=== PATIENT | female | born 1975 | race American Indian/Alaskan Native ===

== ENCOUNTER 2017-07-13 15:57 | Emergency (ER) | payer BC ==
[2017-07-13 16:06] VITALS: BP 130/51
[2017-07-13 16:25] LABS: Basophils % (Auto) 0.5 % (0.0-1.8); Eosinophils % (Auto) 1.8 % (0.0-4.3); Hematocrit 40.2 % (30.3-42.9); Hemoglobin 13.1 gm/dl (10.1-14.3); Mean Corpuscular HGB Conc 33 % (30-34); Mean Corpuscular Hemoglobin 25 pg (28-32); Mean Corpuscular Volume 77 fl (79-97); Platelet Count 266 K/mm3 (140-440); Red Blood Count 5.24 M/mm3 (3.65-5.03); Red Cell Distribution Width 16.8 % (13.2-15.2); White Blood Count 4.5 K/mm3 (4.5-11.0)
[2017-07-13 16:44] LABS: Anion Gap 19 mmol/L; BUN/Creatinine Ratio 16; Blood Urea Nitrogen 14 mg/dL (7-17); Calcium 8.5 mg/dL (8.4-10.2); Carbon Dioxide 22 mmol/L (22-30); Chloride 101.1 mmol/L (98-107); Glucose 85 mg/dL (65-100); Potassium 3.8 mmol/L (3.6-5.0); Sodium 138 mmol/L (137-145)
[2017-07-13] MEDS ORDERED: NACL 0.9% 1000 ML 1,000 ML IV ONE (16:56)
[2017-07-13] MEDS ORDERED: ZOFRAN IV ONE (16:56)
[2017-07-13 17:08] LABS: Bacteria,Urine 1+ /HPF (Negative); Bilirubin,Urine NEG (Negative); Blood,Urine NEG (Negative); Ketones,Urine NEG (Negative); Leukocyte Esterase,Urine NEG (Negative); Mucus,Urine FEW /HPF; Nitrite,Urine NEG (Negative); Urobilinogen,Urine < 2.0 mg/dL (<2.0)
--- NOTE | 2017-07-13 17:30 | Emergency Department Report ---
ED N/V/D HPI - General Chief complaint: Nausea/Vomiting/Diarrhea Stated complaint: FOOD POISONING Time Seen by Provider: 07/13/17 16:55 Source: patient, family Mode of arrival: Ambulatory Limitations: No Limitations - History of Present Illness Initial comments: This is a 42-year-old female nontoxic, well nourished in appearance, no acute signs of distress presents to the ED with c/o of nausea, vomiting, diarrhea 2 days. Patient stated 2 nights ago she ate a jasso chops this really was spoiled that feel later developed the symptoms. Patient did have vomiting has subsided this morning but patient is still nauseous and slight diarrhea. She denies any chest pain, abdominal pain, pelvic pain, back pain, shortness of breath, numbness, tingling, fever, chills. Patient denies any allergies or past medical history. MD complaint: nausea, vomiting, diarrhea -: days(s) (2) Description of Vomiting: food contents Description of Diarrhea: water Associated Abdominal Pain: No Radiation: none Pain Scale: 0 Consistency: constant Improves with: none Worsens with: none Context: possible food poisoning Associated Symptoms: denies other symptoms. denies: myalgias, chest pain, cough , diaphoresis, fever/chills, headaches, loss of appetite, malaise, nausea/ vomiting, rash, dysuria, shortness of breath, syncope, weakness - Related Data Previous Rx's Medication Instructions Recorded Last Taken Type Ondansetron [Zofran Odt] 4 mg PO Q8HR #20 tab.rapdis 07/13/17 Unknown Rx Allergies Allergy/AdvReac Type Severity Reaction Status Date / Time No Known Allergies Allergy Unverified 07/13/17 16:06 ED Review of Systems ROS: Stated complaint: FOOD POISONING Other details as noted in HPI Constitutional: denies: chills, fever Eyes: denies: eye pain, eye discharge, vision change ENT: denies: ear pain, throat pain Respiratory: denies: cough, shortness of breath, wheezing Cardiovascular: denies: chest pain, palpitations Endocrine: no symptoms reported Gastrointestinal: nausea, vomiting, diarrhea. denies: abdominal pain Genitourinary: denies: urgency, dysuria, discharge Musculoskeletal: denies: back pain, joint swelling, arthralgia Skin: denies: rash, lesions Neurological: denies: headache, weakness, paresthesias Psychiatric: denies: anxiety, depression Hematological/Lymphatic: denies: easy bleeding, easy bruising ED Past Medical Hx - Past Medical History Previous Medical History?: No - Surgical History Past Surgical History?: No - Social History Smoking Status: Never Smoker Substance Use Type: None - Medications Home Medications: Home Medications Medication Instructions Recorded Confirmed Last Taken Type Ondansetron [Zofran Odt] 4 mg PO Q8HR #20 tab.rapdis 07/13/17 Unknown Rx ED Physical Exam - General Limitations: No Limitations General appearance: alert, in no apparent distress - Head Head exam: Present: atraumatic, normocephalic, normal inspection - Eye Eye exam: Present: normal appearance, PERRL, EOMI. Absent: scleral icterus, conjunctival injection, nystagmus, periorbital swelling, periorbital tenderness Pupils: Present: normal accommodation - ENT ENT exam: Present: normal exam, normal orophraynx, mucous membranes moist, TM's normal bilaterally, normal external ear exam - Neck Neck exam: Present: normal inspection, full ROM. Absent: tenderness, meningismus, lymphadenopathy, thyromegaly - Respiratory Respiratory exam: Present: normal lung sounds bilaterally. Absent: respiratory distress, wheezes, rales, rhonchi, stridor, chest wall tenderness, accessory muscle use, decreased breath sounds, prolonged expiratory - Cardiovascular Cardiovascular Exam: Present: regular rate, normal rhythm, normal heart sounds. Absent: bradycardia, tachycardia, irregular rhythm, systolic murmur, diastolic murmur, rubs, gallop - GI/Abdominal GI/Abdominal exam: Present: soft, normal bowel sounds. Absent: distended, tenderness, guarding, rebound, rigid, diminished bowel sounds - Rectal Rectal exam: Present: deferred - Extremities Exam Extremities exam: Present: normal inspection, full ROM, normal capillary refill. Absent: tenderness, pedal edema, joint swelling, calf tenderness - Back Exam Back exam: Present: normal inspection, full ROM. Absent: tenderness, CVA tenderness (R), CVA tenderness (L), muscle spasm, paraspinal tenderness, vertebral tenderness, rash noted - Neurological Exam Neurological exam: Present: alert, oriented X3, CN II-XII intact, normal gait, reflexes normal - Psychiatric Psychiatric exam: Present: normal affect, normal mood - Skin Skin exam: Present: warm, dry, intact, normal color. Absent: rash ED Course Vital Signs 07/13/17 16:03 Temperature 98.2 F Pulse Rate 81 Respiratory 16 Rate Blood Pressure 130/51 O2 Sat by Pulse 98 Oximetry - Reevaluation(s) Reevaluation #1: 07/13/17 17:27 Patient is speaking in full sentences with no signs of distress noted. Reevaluation #2: 07/13/17 17:27 Patient tolerated by mouth challenge well with no nausea or vomiting noted. ED Medical Decision Making - Lab Data Result diagrams: 07/13/17 16:15 07/13/17 16:15 - Medical Decision Making This is a 42-year-old female that presents with nausea, vomiting, and diarrhea. Patient is stable and was examined by me. CBC, BMP, and UA obtained within normal limits. Negative test. There is no abdominal tenderness or distention. Patient received 1L of normal saline and Zofran IV. PO challange obtained and patient tolerated well with no nausea or vomiting. Vital signs within normal ranges. Patient was instructed to increase hydration as much as possible. patient was instructed to follow-up with a PCP in 3-5 days or if symptoms worsen and continue return to emergency room as soon as possible. At time time of discharge, the patient does not seem toxic or ill in appearance. No acute signs of distress noted. Patient agrees to discharge treatment plan of care. No further questions noted by the patient. Critical care attestation.: If time is entered above; I have spent that time in minutes in the direct care of this critically ill patient, excluding procedure time. ED Disposition Clinical Impression: Nausea vomiting and diarrhea Disposition: DC-01 TO HOME OR SELFCARE Is pt being admited?: No Does the pt Need Aspirin: No Condition: Stable Instructions: Acute Nausea and Vomiting (ED), Ondansetron (By mouth), Electrolyte Supplement (By mouth) Additional Instructions: Follow-up with a primary care doctor in 3-5 days or if symptoms worsen and continue return to emergency room as soon as possible. Prescriptions: Ondansetron [Zofran Odt] 4 mg PO Q8HR #20 tab.rapdis Referrals: PRIMARY CARE, [Primary Care Provider] - 3-5 Days ROBEL HAMILTON MD [Staff Physician] - 3-[address] [facility] [place] [Outside] - 3-[address] [facility] [Outside] - 3-5 Days Forms: Work/School Release Form(ED)
== END 2017-07-13 18:06 | disposition home or self-care (01) ==
LOC: ED 15:57
DX: R11.2 Nausea with vomiting, unspecified (principal); R19.7 Diarrhea, unspecified
CPT/HCPCS: 36415; 80048; 81001; 81025; 85025; 96361; 96374; 99284; J2405; J7030

== ENCOUNTER 2018-10-28 13:21 | Emergency (ER) | payer BC ==
--- NOTE | 2018-10-28 14:01 | Emergency Department Report ---
Chief Complaint: Vaginal Bleeding Stated Complaint: BLOOD IN URINE FOR 2 DAYS Time Seen by Provider: 10/28/18 13:58 - HPI History of Present Illness: pt presents for hematuria for 2 days no abd pain no fever no N/V (+) frequent urination denies that it is her menstrual cycle MSE screening note: Focused history and physical exam performed. Due to findings the following was ordered: UA, urine preg ED Disposition for MSE Condition: Stable
[2018-10-28 14:04] VITALS: BP 142/92
[2018-10-28 14:32] LABS: Bacteria,Urine 2+ /HPF (Negative); Bilirubin,Urine NEG (Negative); Blood,Urine LG (Negative); Color,Urine Amber (Yellow); Mucus,Urine FEW /HPF; Urobilinogen,Urine < 2.0 mg/dL (<2.0)
[2018-10-28 14:33] LABS: RBC,Urine > 182.0 /HPF (0.0-6.0)
[2018-10-28 14:34] LABS: HCG Qualitative,Urine Negative (Negative)
--- NOTE | 2018-10-28 15:01 | Emergency Department Report ---
ED Female HPI - General Chief complaint: Vaginal Bleeding Stated complaint: BLOOD IN URINE FOR 2 DAYS Time Seen by Provider: 10/28/18 13:58 Source: patient Mode of arrival: Ambulatory Limitations: No Limitations - History of Present Illness Initial comments: Patient is a 43-year-old female who has had hematuria for last 2 days. Patient states that she has no foul odor or pain. She does have some mild pressure suprapubically region and lower back. Patient states she also has had some urinary frequency. Patient denies being on blood thinners or aspirin at this time. Patient denies any injury. Patient states that she does not believe this is vaginal bleeding because she has used apparently liner and she'll only seeing blood when she urinates. - Related Data Previous Rx's Medication Instructions Recorded Last Taken Type Ondansetron [Zofran Odt] 4 mg PO Q8HR #20 tab.rapdis 07/13/17 Unknown Rx Ciprofloxacin HCl [Cipro] 500 mg PO BID #14 tablet 10/28/18 Unknown Rx Phenazopyridine [Pyridium] 200 mg PO BID #6 tab 10/28/18 Unknown Rx Allergies Allergy/AdvReac Type Severity Reaction Status Date / Time nut - unspecified Allergy Swelling Verified 10/28/18 13:25 ED Review of Systems ROS: Stated complaint: BLOOD IN URINE FOR 2 DAYS Other details as noted in HPI Comment: All other systems reviewed and negative ED Past Medical Hx - Past Medical History Previous Medical History?: No - Surgical History Past Surgical History?: No - Social History Smoking Status: Never Smoker Substance Use Type: None - Medications Home Medications: Home Medications Medication Instructions Recorded Confirmed Last Taken Type Ondansetron [Zofran Odt] 4 mg PO Q8HR #20 tab.rapdis 07/13/17 Unknown Rx Ciprofloxacin HCl [Cipro] 500 mg PO BID #14 tablet 10/28/18 Unknown Rx Phenazopyridine [Pyridium] 200 mg PO BID #6 tab 10/28/18 Unknown Rx ED Physical Exam - General Limitations: No Limitations General appearance: alert, in no apparent distress - Head Head exam: Present: atraumatic, normocephalic - Eye Eye exam: Present: normal appearance - ENT ENT exam: Present: mucous membranes moist - Neck Neck exam: Present: normal inspection - Respiratory Respiratory exam: Present: normal lung sounds bilaterally. Absent: respiratory distress, wheezes, rales, rhonchi - Cardiovascular Cardiovascular Exam: Present: regular rate, normal rhythm. Absent: systolic murmur, diastolic murmur, rubs, gallop - GI/Abdominal GI/Abdominal exam: Present: soft, normal bowel sounds. Absent: distended, tenderness, guarding, rebound - Extremities Exam Extremities exam: Present: normal inspection - Back Exam Back exam: Present: normal inspection - Neurological Exam Neurological exam: Present: alert, oriented X3 - Psychiatric Psychiatric exam: Present: normal affect, normal mood - Skin Skin exam: Present: warm, dry, intact, normal color. Absent: rash ED Course Vital Signs 10/28/18 14:03 Temperature 97.9 F Pulse Rate 80 Respiratory 18 Rate Blood Pressure 142/92 O2 Sat by Pulse 80 L Oximetry ED Medical Decision Making - Lab Data Lab Results 10/28/18 Range/Units 14:14 Urine Color Holly (Yellow) Urine Turbidity Cloudy (Clear) Urine pH 6.0 (5.0-7.0) Ur Specific Aiken 1.023 (1.003-1.030) Urine Protein 100 mg/dl (Negative) mg/dL Urine Glucose (UA) Neg (Negative) mg/dL Urine Ketones Neg (Negative) mg/dL Urine Blood Lg (Negative) Urine Nitrite Neg (Negative) Urine Bilirubin Neg (Negative) Urine Urobilinogen < 2.0 (<2.0) mg/dL Ur Leukocyte Esterase Neg (Negative) Urine WBC (Auto) 65.0 H (0.0-6.0) /HPF Urine RBC (Auto) > 182.0 (0.0-6.0) /HPF U Epithel Cells (Auto) 12.0 (0-13.0) /HPF Urine Bacteria (Auto) 2+ (Negative) /HPF Urine Mucus Few /HPF Urine HCG, Qual Negative (Negative) - Medical Decision Making Patient is a 43-year-old female who is here for hematuria. Patient does also have a large amount of white blood cells in the urine. Patient will be treated as though this is a an infection. Patient was started on Cipro and Pyridium. Patient will have a urine culture sent to ensure that this is an infection. Patient given urology for follow-up in case the patient's symptoms did not resolve. Critical care attestation.: If time is entered above; I have spent that time in minutes in the direct care of this critically ill patient, excluding procedure time. ED Disposition Clinical Impression: UTI (urinary tract infection) Qualifiers: Urinary tract infection type: acute cystitis Hematuria presence: with hematuria Qualified Code(s): N30.01 - Acute cystitis with hematuria Disposition: TO HOME OR SELFCARE Is pt being admited?: No Condition: Stable Additional Instructions: A culture of his urine has been sent to confirm an infection. Also please follow with urology if your bleeding does not resolve in 2-3 days. Although your symptoms today are not consistent with an obstructed kidney stone, the sharp pain that she states U felt that she urethra could've been a passage of a very small kidney stone. Referrals: DARREN MURPHY MD [Staff Physician] - 3-5 Days Time of Disposition: 15:01
== END 2018-10-28 15:23 | disposition home or self-care (01) ==
LOC: ED 13:21
DX: N39.0 Urinary tract infection, site not specified (principal); Z91.010 Allergy to peanuts
CPT/HCPCS: 81001; 81025; 99283